=== PATIENT | male | born 1950 | race Caucasian/White ===

== ENCOUNTER → 2017-12-21 | Outpatient (CLI) | payer OTHER, MEDICARE | LOC: CIMAGING 15:27 | PROVIDERS: ATTEND Family Medicine | DX: Z01.818 Encounter for other preprocedural examination (principal); M17.11 Unilateral primary osteoarthritis, right knee; J44.9 Chronic obstructive pulmonary disease, unspecified | CPT/HCPCS: 36415-PO; 71046-PO ==

== ENCOUNTER 2018-01-18 07:28 | Observation (INO) | payer OTHER, MEDICARE ==
--- NOTE | 2018-01-17 18:01 | GHP ---
DATE OF ADMISSION: 01/18/2018 SURGERY DATE: 01/18/2018. HISTORY OF PRESENT ILLNESS: The patient is a 67-year-old male who presents with chronic right knee p ain worsening over the last year. He has stiffness, swelling, sharp twinges of pain, and mechanical symptoms. His symptom complex limits his motion, alters his gait. He has tried conservative measure s, including medications, gentle exercise. He has tried orthotics. He is in significant severe varu s malalignment. He has severe tricompartment osteoarthritis, most significantly in the medial compar tment that by MRI has broad areas of grade 4 cartilage loss, lateral compartment grade 3 cartilage lo ss. A right total knee arthroplasty is planned. PAST MEDICAL HISTORY: Remarkable for throat cancer in 2009. He has had surgery, chemotherapy, and x -rays without recurrence. Appears cured at this point. ALLERGIES: He has no known drug allergies. MEDICATIONS: He is taking no medication. SOCIAL HISTORY: He has quit smoking. He does use some marijuana. REVIEW OF SYSTEMS: Positive for his cancer history. PHYSICAL EXAM: VITAL SIGNS: The patient is a well-developed, well-nourished male in no apparent dis tress. HEAD AND NECK: Normocephalic, atraumatic. CHEST: Clear. CARDIOVASCULAR: Regular rate and rhythm. ABDOMEN: Soft. NEUROLOGIC: He is alert and oriented x3. EXTREMITIES: Examination of th e right knee shows varus malalignment. He has tenderness along the medial joint line and a positive medial Meliton test. Genesis test is negative. Negative pivot shift. No posterior sag. Collatera l ligaments are stable, but he had some pseudolaxity medially from his joint space loss. His range o f motion is from a flexion contracture of a few degrees to about 130 degrees. SKIN/NEUROVASCULAR: A ppear intact. IMPRESSION: Right knee osteoarthritis. PLAN: A right total knee arthroplasty. The benefits and risks of surgery have been reviewed. He un derstands that the risks include infection, damage to blood vessels, nerves, failure or loosening of the components and need for revision, blood clot in the leg or lungs, bleeding and the need for trans fusion. I have reviewed the rigorous nature of the rehabilitation. His knee is significantly limiti ng him and impacting his quality of life, so he wishes to proceed. /[id number]/MODL
[~2018-01-18 07:28] MED LIST: POVIDONE-IODINE 20 ML in SODIUM CL IRRIG SOLUTION 500 ML IRR ONE; ROPIVACAINE 0.2% 80 MG, EPINEPHrine 0.2 MG, KETOROLAC TROMETHAMINE 30 MG in SYRINGE 0 ML IU ONE; TRANEXAMIC ACID 1,000 MG in NS 100 ML IV ONE
[2018-01-18] MEDS ORDERED: ceFAZolin 1 GM/5 ML SYR ONE (07:46)
[2018-01-18] MEDS ORDERED: ceFAZolin 2 GM/DEXTROSE 100 ML IV ONE (07:59)
[2018-01-18] MEDS ORDERED: ACETAMINOPHEN 325 MG TAB PO ONE (07:59)
[2018-01-18] MEDS ORDERED: GABAPENTIN 300 MG CAP PO ONE (07:59)
[2018-01-18] MEDS ORDERED: ONDANSETRON 4 MG/2 ML VIAL IVP ONE (07:59)
[2018-01-18] MEDS ORDERED: DEXAMETHASONE 4 MG/ML VIAL IVP ONE (07:59)
[2018-01-18] MEDS ORDERED: FAMOTIDINE 20 MG TAB PO ONE (07:59)
[2018-01-18] MEDS ORDERED: LR 1,000 ML IV ONE (08:01)
--- NOTE | 2018-01-18 09:37 | PDHPUP ---
History & Physical Update H&P update statement: This history and physical update is based on an assessment of the patient which was completed after admission or registration (within 24 hours), but prior to the surgery/procedure. no change H&P update: no change in patient's condition since H&P completed (no change)
[2018-01-18] MEDS ORDERED: oxyCODONE IR 5 MG TAB PO PRN ×2 (09:55→12:30)
[2018-01-18] MEDS ORDERED: PROMETHAZINE HCL 25 MG/ML INJ IVP PRN ×2 (09:55→12:30)
[2018-01-18] MEDS ORDERED: HYDROmorphONE/DILAUDID 2 MG/ML INJ IVP PRN (09:55)
[2018-01-18] MEDS ORDERED: ALBUTEROL 3 ML DEYVIAL IH PRN (09:55)
[2018-01-18] MEDS ORDERED: MIDAZOLAM 2 MG/2 ML VIAL IVP ONE (09:55)
[2018-01-18] MEDS ORDERED: ACETAMINOPHEN 500 MG TAB PO PRN (09:55)
[2018-01-18] MEDS ORDERED: NALOXONE HCL 0.4 MG/ML INJ IVP PRN (09:55)
[2018-01-18] MEDS ORDERED: DEXAMETHASONE 4 MG/ML VIAL IVP PRN (09:55)
[2018-01-18] MEDS ORDERED: fentaNYL 100 MCG/2 ML INJ IVP PRN (09:55)
[2018-01-18] MEDS ORDERED: PROPOFOL/EMULSION 500 MG/50 ML BOTTLE IV ONE ×4 (10:03→11:54)
[2018-01-18] MEDS ORDERED: BUPIVACAINE/DEXTROSE 7.5MG/ML 2 ML SPINAL AMP SP ONE (10:09)
[2018-01-18] MEDS ORDERED: fentaNYL 100 MCG/2 ML INJ ONE ×2 (10:24→10:41)
[2018-01-18] MEDS ORDERED: ONDANSETRON 4 MG/2 ML VIAL ONE (11:36)
[2018-01-18] MEDS ORDERED: DEXAMETHASONE 4 MG/ML VIAL ONE (11:36)
[2018-01-18] MEDS ORDERED: ROPIVACAINE HCL 150 MG/30 ML INJ ONE (12:13)
[2018-01-18] MEDS ORDERED: METOCLOPRAMIDE 10 MG/2 ML VIAL IVP PRN (12:30)
[2018-01-18] MEDS ORDERED: LR 1,000 ML IV SCH (12:30)
[2018-01-18] MEDS ORDERED: diphenhydrAMINE 25 MG CAP PO PRN (12:30)
[2018-01-18] MEDS ORDERED: DIPHENOXYLATE/ATROPINE LOMOTIL 1 TAB PO PRN (12:30)
[2018-01-18] MEDS ORDERED: PROMETHAZINE HCL 25 MG SUPPR PR PRN (12:30)
[2018-01-18] MEDS ORDERED: POLYETHYLENE GLYCOL 3350 17 GM PKT PO PRN (12:30)
[2018-01-18] MEDS ORDERED: ONDANSETRON DISINTEGRATING 4 MG TAB PO PRN (12:30)
[2018-01-18] MEDS ORDERED: ONDANSETRON 4 MG/2 ML VIAL IVP PRN (12:30)
[2018-01-18] MEDS ORDERED: CYCLOBENZAPRINE 10 MG TAB PO PRN (12:30)
[2018-01-18] MEDS ORDERED: MAGNESIUM HYDROXIDE 30 ML UDCUP PO PRN (12:30)
[2018-01-18] MEDS ORDERED: DIAZEPAM 5 MG TAB PO PRN (12:30)
[2018-01-18] MEDS ORDERED: TEMAZEPAM 15 MG CAP PO PRN (12:30)
[2018-01-18] MEDS ORDERED: LACTULOSE 20 GM/30 ML UDCUP PO PRN (12:30)
[2018-01-18] MEDS ORDERED: BISACODYL 10 MG SUPP PR PRN (12:30)
--- NOTE | 2018-01-18 13:00 | GOP ---
DATE OF OPERATION: SURGEON: Ashwin Ferguson MD V BELT INSPECTOR: Igor Blandon, CSFA, LSA. ANESTHESIOLOGIST: Aiden Amin DO. PREOPERATIVE DIAGNOSIS: Right knee osteoarthritis. POSTOPERATIVE DIAGNOSIS: Right knee osteoarthritis. PROCEDURE PERFORMED: Right total knee arthroplasty. FINDINGS: SPECIMENS: No specimens. ESTIMATED BLOOD LOSS: Minimal. INDICATIONS: Marcus is a 67-year-old male who presents with history, exam and x-rays all consistent with severe tricompartment osteoarthritis for which appropriate conservative measures have been trie d. A right total knee arthroplasty is planned. DESCRIPTION OF PROCEDURE: The patient was taken to the operating room, and in the seated position Dr Alhaji Amin provided a spinal anesthetic. He was then placed supine and had IV sedation, preoperative tr anexamic acid as well as 2 g of IV Ancef. A tourniquet was fit high on the right thigh and the right leg was prepped and draped free in the usual fashion in neutral rotation. He has a slight flexion c ontracture of about 2-3 degrees. The limb was elevated, exsanguinated, tourniquet inflated to 275 mm Hg. I made a longitudinal incision in the midline used a medial parapatellar arthrotomy, inverted th e patella. Thickness was 26 mm, I removed 9 mm of cartilage and bone. To accommodate the implant, t his was sized to a 38 and appropriate peg holes were drilled, the combination of the patellar trial a nd this [place] patella re-established the patellar thickness. The patella was inverted and knee was flexed, I drilled a chief pilot hole in the distal femur. I used intramedullary guide for the femoral cut, 5 degrees of valgus, I used an extra +2 mm of resection to accommodate his flexion contracture. Aft er this cut had been made, I used an 18 mm spacer block with the knee in extension to leadner the tibia for the tibial cut. The knee was then flexed and I sized the femur between a size 7 and 8, I downsiz ed to a 7, advanced it anteriorly and I completed the anterior, posterior, and camphor cuts and notch cuts for this bi-cruciate stabilized knee. The femoral trial was a good fit. The tibia required ex tramedullary alignment jig, I dialed in the rotation, posterior slope and alignment. I used my space r leander on the tibia. I went a little more conservatively and made a cut across proximal tibia perpen dicular to its axis. That bone was removed, I debrided the surfaces and removed extra meniscal tissu e. I did a little soft tissue balancing as the MCL was quite tight in this varus knee. I sized the tibial plateau to a size 7 and I dialed in the rotation and completed the tibial prep. All component s were removed. The surfaces were jet lavaged with antibiotic solution. Methylmethacrylate with maxine ent, all components were cemented, size 7 tibia, size 7 femur and a 38 patella. Once the cement had hardened, I went through a series of trial reductions, I found an 11 mm articular tray allowed full e xtension and excellent rollback in flexion and ligament stability. A size 11 mm thick articular tray was snapped into place. The tourniquet was let down after an hour and 20 minutes. I used a Betadin e rinse and antibiotic solution rinse and then injected anesthetic cocktail around the knee joint tis sues. The arthrotomy was closed with [id number] sutures of 0 [place], subcutaneous tissue wit h 3-0 Monocryl, and the skin with vinay. The wound was dressed with Betadine-soaked Adaptic, 4 x 4 , sterile Webril, and a long-leg TAMMY stocking. There were no complications. DRAINS: No drains. COUNTS: All counts correct and the patient was taken in stable condition to recovery. My medical surgical tech, Igor Blandon, was a medical necessity. SUMMARY OF COMPONENTS: This is a [employer] knee, bi-cruciate stabilized Oxinium femur all components cemented, femur size 7, tibia size 7, patella 38, and the articular tray is a crossli nked 11 mm thick tray. /[id number]/MODL
--- NOTE | 2018-01-18 13:17 | PDANEPAE ---
ANE History of Present Illness R Knee TKA ANE Past Medical History - Cardiovascular History Hx Hypertension: No Hx Arrhythmias: No Hx Chest Pain: No Hx Coronary Artery / Peripheral Vascular Disease: No Hx CHF / Valvular Disease: No Hx Palpitations: No - Pulmonary History Hx COPD: No Hx Asthma/Reactive Airway Disease: No Hx Recent Upper Respiratory Infection: No Hx Oxygen in Use at Home: No Hx Sleep Apnea: No Sleep Apnea Screening Result - Last Documented: Negative - Neurologic History Hx Cerebrovascular Accident: No Hx Seizures: No Hx Dementia: No - Endocrine History Hx Diabetes: No - Renal History Hx Renal Disorders: No - Liver History Hx Hepatic Disorders: No - Neurological & Psychiatric Hx Hx Neurological and Psychiatric Disorders: No - Cancer History Hx Cancer: Yes Cancer History Comment: throat ca- with surgical removal- radiation and chemo 2009 - Congenital Disorder History Hx Congenital Disorders: No - GI History Hx Gastrointestinal Disorders: Yes Gastrointestinal History Comment: poss chronic vomitting syndrome, every few months he gets bouts of what feels like food poisioning, doesn't know what triggers are. has been going on for several years. bouts last 1-5 days - Other Health History Other Health History: wears glasses. somewhat hard of hearing. upper dentures. dry skin with patches - Chronic Pain History Chronic Pain: Yes (right knee, right shoulder) - Surgical History Prior Surgeries: 03/12/10 laryngoscopy bx, removal of tongue tumor, excision of left neck mass with Dr. Key. RTC- right. oral surgery to remove teeth. ANE Review of Systems Review of Systems: - Exercise capacity METS (RN): 4 METS ANE Patient History - Allergies Allergies/Adverse Reactions: codeine Allergy (Verified 12/22/17 11:46) upset stomach - Home Medications Home Medications: NK [No Known Home Meds] 12/18/17 [Last Taken Unknown] - NPO status NPO Since - Liquids (Date): 01/18/18 NPO Since - Liquids (Time): 03:30 NPO Since - Solids (Date): 01/17/18 NPO Since - Solids (Time): 19:00 - Smoking Hx Smoking Status: Former smoker - Family Anes Hx Family Hx Anesthesia Complications: none ANE Labs/Vital Signs - Vital Signs Blood Pressure: 140/69 Heart Rate: 86 Respiratory Rate: 13 O2 Sat (%): 96 Height: 182.88 cm Weight: 90.718 kg ANE Physical Exam - Airway Neck exam: FROM Mallampati Score: Class 2 Mouth exam: normal dental/mouth exam - Pulmonary Pulmonary: clear to auscultation - Cardiovascular Cardiovascular: regular rate and rhythym - ASA Status ASA Status: II ANE Anesthesia Plan Anesthesia Plan: spinal Regional Anesthesia: adductor canal FNB
--- NOTE | 2018-01-18 13:17 | POSTANESTH ---
Post Anesthetic Evaluation Cardiovascular Status: Normal, Stable Respiratory Status: Normal, Stable Level of Consciousness/Mental Status: Can Participate in Eval, Mildly Sleepy, Arousable Pain Control: Adequate, Prn Tx Ordered Nausea/Vomiting Control: Adequate, Prn Tx Ordered Complications Possibly Related to Anesthesia: None Noted
[2018-01-18] MEDS ORDERED: oxyCODONE IR 5 MG TAB ONE (13:23)
[2018-01-18] MEDS: ceFAZolin 2 GM/DEXTROSE 100 ML IV SCH ×2 (14:36→21:51)
[2018-01-18] MEDS: ACETAMINOPHEN 325 MG TAB PO SCH ×2 (17:10→23:43)
[2018-01-18] MEDS: FAMOTIDINE 20 MG TAB PO SCH (20:23)
[2018-01-18] MEDS: SENNOSIDES/DOCUSATE SODIUM TAB PO SCH (20:23)
[2018-01-18] MEDS: ASPIRIN 81 MG CHEWABLE TAB PO SCH (20:23)
[2018-01-19] MEDS: ACETAMINOPHEN 325 MG TAB PO SCH (05:00)
[2018-01-19 07:39] VITALS: BP 139/83
[2018-01-19] MEDS: FAMOTIDINE 20 MG TAB PO SCH (08:28)
[2018-01-19] MEDS: ASPIRIN 81 MG CHEWABLE TAB PO SCH (08:29)
[2018-01-19] MEDS: SENNOSIDES/DOCUSATE SODIUM TAB PO SCH (08:29)
--- NOTE | 2018-01-19 09:00 | SOAPPROG ---
WINDY Progress Note Assessment/Plan: Assessment: 01/19/18, postoperative day 1, right total knee, hematocrit 40, pain is controlled, has been up with physical therapy, postop x-ray looks fine Plan: 01/19/18 08:58 home today after physica, we'll do outpatient physical the,asa, oxy, celebrex Objective: Vital Signs Temp Pulse Resp BP Pulse Ox 36.6 C 80 14 139/83 H 92 01/19/18 07:38 01/19/18 07:38 01/19/18 07:38 01/19/18 07:38 01/19/18 07:38 Laboratory Results 01/19/18 05:05 01/18/18 01/19/18 01/20/18 05:59 05:59 05:59 Intake Total 2250 Output Total 2375 Balance -125 ICD10 Worksheet Patient Problems: Problems Problem Status Onset Osteoarthritis of right knee Acute - ICD10 Problem Qualifiers (1) Osteoarthritis of right knee
--- NOTE | 2018-01-19 10:12 | ASMTLACE ---
LACE Length of stay for Answers: 2 days current admission Acuity / Level of Answers: No Care: Did the patient have an inpatient admission? Comorbidities - select Answers: Opioid dependence all that apply / Chronic pain # of Emergency department Answers: 0 visits in the last 6 months Score: 6 Date Signed: 01/19/2018 10:11 AM Electronically Signed By:NORIS Tong
--- NOTE | 2018-01-19 10:13 | ASMTCMCOM ---
CM Note CM Note Notes: Pt s/p planned OA R knee, resides with spouse. PT and MD rec outpatient PT. No CM d/c needs identified. Date Signed: 01/19/2018 10:12 AM Electronically Signed By:NORIS Tong
== END 2018-01-19 12:42 | disposition home or self-care (01) ==
LOC: INTOOBSV 07:28 → F3N 07:28
PROVIDERS: ADMIT Orthopaedic Surgery; ATTEND Orthopaedic Surgery
PROC: 0SRC0J9 Replacement of Right Knee Joint with Synthetic Substitute, Cemented, Open Approach (ICD-10-PCS; principal; 2018-01-18 09:30)
DX: M17.11 Unilateral primary osteoarthritis, right knee (principal); Z87.891 Personal history of nicotine dependence; Z92.21 Personal history of antineoplastic chemotherapy; Z85.818 Personal history of malignant neoplasm of other sites of lip, oral cavity, and pharynx
CPT/HCPCS: 27447; 73560; 88305; 88311; 97116; 97161; 97165; C1713; C1776; G8978; G8979; G8980; G8987; G8988; G8989; J0171; J0690; J1100; J1885; J2250; J2405; J2704; J2795; J3010

== ENCOUNTER → 2018-07-13 | Outpatient (CLI) | payer OTHER, MEDICARE | LOC: CIMAGING 11:42 | PROVIDERS: ATTEND Otolaryngology | DX: Z85.01 Personal history of malignant neoplasm of esophagus (principal) | CPT/HCPCS: 71046-PO ==